=== PATIENT | female | born 1985 | race Caucasian/White ===

== ENCOUNTER 2017-06-11 16:26 | Emergency (ER) | payer MEDICAID ==
[~2017-06-11] VITALS: Ht 162.6 cm; Wt 84.4 kg
[~2017-06-11 16:26] MED LIST: BUSP10TA PO; CEPH-376 PO; ESCI10TA10 PO; QUET50TA8 PO
[2017-06-11 16:27] VITALS: BP 139/92
== END 2017-06-11 17:05 | disposition home or self-care (01) ==
LOC: ED 16:45
DX: O99.613 Diseases of the digestive system complicating pregnancy, third trimester (principal); K08.89 Other specified disorders of teeth and supporting structures; Z3A.31 31 weeks gestation of pregnancy
CPT/HCPCS: 99283

== ENCOUNTER 2018-11-23 00:44 | Inpatient (IN) | payer MEDICAID ==
[~2018-11-23] VITALS: Ht 162.6 cm; Wt 85.0 kg
[~2018-11-23 00:44] MED LIST changes: -QUET50TA8 PO; +QUET50TA9 PO
[2018-11-23] MEDS ORDERED: OXYTOCIN 30U/ 0.9% NaCL 500ML 500 ML ONE ×2 (00:46→01:48)
[2018-11-23] MEDS ORDERED: LIDOCAINE 1%, 20ML ONE (00:57)
[2018-11-23] MEDS ORDERED: OXYTOCIN 30U/ 0.9% NaCL 500ML 500 ML IV ONE (00:58)
[2018-11-23] MEDS ORDERED: D5%-LACTATED RINGERS 1,000 ML IV SCH (00:58)
[2018-11-23] MEDS ORDERED: METOCLOPRAMIDE 5 MG/ML, 2ML IVPush PRN (01:00)
[2018-11-23] MEDS ORDERED: CALCIUM CARBONATE 500 MG TAB.CHEW PO PRN ×2 (01:00→02:12)
[2018-11-23] MEDS ORDERED: ONDANSETRON 2MG/ML, 2ML IVPush PRN (01:00)
[2018-11-23] MEDS ORDERED: FENTANYL PF 100 MCG/2ML IVPush PRN (01:00)
[2018-11-23] MEDS ORDERED: FENTANYL PF 100 MCG/2ML ONE (01:03)
[2018-11-23] MEDS ORDERED: MISOPROSTOL 200 MCG TABLET ONE (01:04)
[2018-11-23 01:34] LABS: MEAN CORPUSCULAR HEMOGLOBIN 30.7 pg (27.0-34.8); MEAN CORPUSCULAR HGB CONC 32.7 g/dL (32.4-35.8); MEAN CORPUSCULAR VOLUME 93.9 fL (80-100); MEAN PLATELET VOLUME 10.3 fL (7.4-10.4); PLATELET COUNT 185 x10^3/uL (130-400); RED CELL DISTRIBUTION WIDTH 14.1 % (9.6-15.2)
[2018-11-23] MEDS: OXYTOCIN 30U/ 0.9% NaCL 500ML 500 ML IV SCH ×11 (01:42→21:55)
[2018-11-23 01:53] LABS: BASOPHILS # (AUTO) 0.01 x10^3/uL (0-0.1); BASOPHILS % (AUTO) 0 % (0-1); EOSINOPHILS # (AUTO) 0.05 x10^3/uL (0-0.4); EOSINOPHILS % (AUTO) 0 % (1-7); LYMPHOCYTES # (AUTO) 1.95 x10^3/uL (1-3.4); LYMPHOCYTES % (AUTO) 9 % (22-44); MD SCAN; MONOCYTES # (AUTO) 0.17 x10^3/uL (0.2-0.8); MONOCYTES % (AUTO) 1 % (2-9); NEUTROPHILS # (AUTO) 18.44 x10^3/uL (1.8-6.8); NEUTROPHILS % (AUTO) 90 % (42-75)
[2018-11-23] MEDS: LACTATED RINGERS 1,000 ML IV SCH ×3 (01:53→16:58)
[2018-11-23] MEDS ORDERED: DOCUSATE 100 MG CAPSULE PO PRN (02:00)
[2018-11-23] MEDS ORDERED: IBUPROFEN 600 MG TABLET PO PRN (02:00)
[2018-11-23] MEDS ORDERED: MISOPROSTOL 200 MCG TABLET PR PRN (02:00)
[2018-11-23] MEDS ORDERED: OXYcodone IR 5MG TABLET PO PRN ×2 (02:00)
[2018-11-23] MEDS ORDERED: KETOROLAC 30 MG/1 ML ONE (02:54)
[2018-11-23] MEDS: KETOROLAC 30 MG/1 ML IVPush SCH ×2 (02:55→08:00)
[2018-11-23 03:10] VITALS: BP 133/84
[2018-11-23 06:07] LABS: AMPHETAMINE SCREEN, URINE Negative (Negative); BARBITURATE SCREEN, URINE Negative (Negative); BENZODIAZEPINE SCREEN, URINE Negative (Negative); CANNABINOID SCREEN, URINE Positive (Negative); COCAINE SCREEN, URINE Negative (Negative); METHADONE SCREEN, URINE Positive (Negative); OPIATE SCREEN, URINE Negative (Negative)
[2018-11-23 07:30] VITALS: BP_SYST 104; BP_SYST 119; BP_DIAS 74; BP_DIAS 77
[2018-11-23] MEDS ORDERED: METHADONE INTENSOL 10 MG/ML ORAL CONC PO SCH ×2 (08:00→18:00)
[2018-11-23 08:27] LABS: MEAN CORPUSCULAR HEMOGLOBIN 30.2 pg (27.0-34.8); MEAN CORPUSCULAR HGB CONC 32.9 g/dL (32.4-35.8); MEAN CORPUSCULAR VOLUME 91.7 fL (80-100); MEAN PLATELET VOLUME 9.7 fL (7.4-10.4); PLATELET COUNT 180 x10^3/uL (130-400); RED BLOOD COUNT 3.68 x10^6/uL (3.82-5.3)
[2018-11-23] MEDS: DOXYCYCLINE 100MG TABLET PO SCH ×2 (08:30→21:23)
[2018-11-23 08:58] LABS: BASOPHILS # (AUTO) 0.05 x10^3/uL (0-0.1); BASOPHILS % (AUTO) 0 % (0-1); EOSINOPHILS % (AUTO) 0 % (1-7); LYMPHOCYTES # (AUTO) 1.32 x10^3/uL (1-3.4); LYMPHOCYTES % (AUTO) 7 % (22-44); MD SCAN; MONOCYTES # (AUTO) 0.49 x10^3/uL (0.2-0.8); MONOCYTES % (AUTO) 3 % (2-9); NEUTROPHILS # (AUTO) 15.97 x10^3/uL (1.8-6.8); NEUTROPHILS % (AUTO) 90 % (42-75)
[2018-11-23] MEDS ORDERED: PRENATAL VIT/IRON/FA 1 EACH TABLET PO SCH (12:00)
[2018-11-23 12:05] VITALS: BP 121/69
[2018-11-23 20:00] VITALS: BP 117/72
[2018-11-23] MEDS: IBUPROFEN 600 MG TABLET PO PRN (21:23)
[2018-11-24] MEDS: LACTATED RINGERS 1,000 ML IV SCH ×2 (00:58→08:58)
[2018-11-24 01:20] VITALS: BP 12/132
[2018-11-24] MEDS: IBUPROFEN 600 MG TABLET PO PRN (06:04)
[2018-11-24 07:30] VITALS: BP 132/79
[2018-11-24] MEDS: OXYTOCIN 30U/ 0.9% NaCL 500ML 500 ML IV SCH (07:42)
[2018-11-24] MEDS ORDERED: METHADONE INTENSOL 10 MG/ML ORAL CONC PO SCH (08:00)
[2018-11-24] MEDS: DOXYCYCLINE 100MG TABLET PO SCH (08:58)
== END 2018-11-24 12:07 | disposition home or self-care (01) | DRG 806 ==
LOC: LDIP 00:44 → 2NW 03:10
PROVIDERS: ADMIT Obstetrics & Gynecology; ATTEND Obstetrics & Gynecology
PROC: 10E0XZZ Delivery of Products of Conception, External Approach (ICD-10-PCS; principal; 2018-11-23)
PROC: 0KQM0ZZ Repair Perineum Muscle, Open Approach (ICD-10-PCS; 2018-11-23)
PROC: 0U9LXZZ Drainage of Vestibular Gland, External Approach (ICD-10-PCS; 2018-11-23)
DX: O34.211 Maternal care for low transverse scar from previous cesarean delivery (principal); O99.324 Drug use complicating childbirth; Z37.0 Single live birth; O70.1 Second degree perineal laceration during delivery; N75.0 Cyst of Bartholin's gland; O75.89 Other specified complications of labor and delivery; O99.334 Smoking (tobacco) complicating childbirth; F17.210 Nicotine dependence, cigarettes, uncomplicated; F12.90 Cannabis use, unspecified, uncomplicated; Z3A.38 38 weeks gestation of pregnancy
CPT/HCPCS: 36415; 80307; 82803; 85025; 86592; 86762; 86850; 86900; 87340; 87806; 88307; G0378; J1885; J3010; G0475; J2590; J7120

== ENCOUNTER 2021-01-21 18:48 | Emergency (ER) | payer MEDICAID ==
[~2021-01-21] VITALS: Ht 162.6 cm; Wt 77.1 kg
--- NOTE | 2021-01-21 18:51 | NUR ---
[id number] FOR TRIAGE
[2021-01-21] MEDS ORDERED: FAMOTIDINE 20 MG TABLET ONE (19:02)
[2021-01-21] MEDS ORDERED: DIPHENHYDRAMINE 50 MG CAPSULE ONE (19:02)
[2021-01-21] MEDS ORDERED: FAMOTIDINE 20 MG TABLET PO ONE (19:30)
[2021-01-21] MEDS ORDERED: DIPHENHYDRAMINE 25 MG CAPSULE PO ONE (19:30)
[2021-01-21 20:19] VITALS: BP 109/68
== END 2021-01-21 20:21 | disposition home or self-care (01) ==
LOC: ED 19:48
DX: L50.0 Allergic urticaria (principal)
CPT/HCPCS: 99284; J7512; Q0163